=== PATIENT | female | born 1980 ===

== ENCOUNTER 2019-06-25 11:26 | Outpatient (CLI) | payer OTHER ==
[~2019-06-25] VITALS: Ht 152.4 cm; Wt 50.8 kg
== END 2019-06-25 11:40 | disposition home or self-care (01) ==
LOC: OFIC 805 11:26
DX: J35.1 Hypertrophy of tonsils (principal); R22.1 Localized swelling, mass and lump, neck; R13.19 Other dysphagia

== ENCOUNTER 2019-10-03 10:49 | Outpatient (CLI) | payer OTHER ==
[~2019-10-03] VITALS: Ht 152.4 cm; Wt 50.8 kg
== END 2019-10-03 11:25 | disposition home or self-care (01) ==
LOC: OFIC 805 10:49
DX: J35.8 Other chronic diseases of tonsils and adenoids (principal); R22.1 Localized swelling, mass and lump, neck; K00.6 Disturbances in tooth eruption; R13.11 Dysphagia, oral phase

== ENCOUNTER 2020-12-27 10:01 | Outpatient (CLI) | payer OTHER | END 2020-12-27 10:22 | disposition home or self-care (01) | LOC: OFIC 805 10:01 | PROVIDERS: ATTEND Otolaryngology Otology & Neurotology | DX: F45.8 Other somatoform disorders (principal); J02.8 Acute pharyngitis due to other specified organisms; K21.9 Gastro-esophageal reflux disease without esophagitis ==